=== PATIENT | female | born 1940 | race Caucasian/White ===

== ENCOUNTER → 2023-11-22 07:37 | Outpatient (REF) | payer MEDICARE, BC, SELFPAY ==
[2023-11-22 10:08] LABS: % Basophils 0.4 % (0-2); % Eosinophils 1.5 % (0-6); % Immature Granulocytes 0.2 % (0-0.5); % Lymphocytes 23.8 % (20.5-51.1); % Monocytes 5.8 % (1.7-9.3); % Neutrophils 68.3 % (42.2-75.2); Absolute Eosinophils 0.1 10^3/uL (0-0.7); Absolute Lymphocytes 1.9 10^3/uL (1.2-3.4); Absolute Monocytes 0.5 10^3/uL (0.1-0.6); Absolute Neutrophils 5.6 10^3/uL (1.4-6.5); Hematocrit 42.5 % (37.0-47.0); Hemoglobin 14.2 g/dL (12.0-16.0); Mean Corp Hgb Conc. 33.4 g/dL (33.0-37.0); Mean Corpuscular Volume 83.8 fL (81.0-99.0); Mean Platelet Volume 10.5 fL (7.4-10.4); Nucleated Red Blood Cells % 0 %; Platelet Count 341 10^3/uL (130-400); Red Blood Cell Count 5.07 10^6/uL (4.20-5.40); Red Cell Dist. Width 13.4 % (11.5-14.5); White Blood Cell Count 8.1 10^3/uL (4.8-10.8)
[2023-11-22 10:24] LABS: Blood Urea Nitrogen 17 mg/dl (7-17); Calcium 9.9 mg/dl (8.4-10.2); Carbon Dioxide 26 mmol/L (22-30); Chloride 102 mmol/L (98-107); Glucose 105 mg/dl (70-99); Sodium 138 mmol/L (135-145); eGFR > 60.00
== END ==
LOC: HWLAB 07:37
PROVIDERS: ATTENDING PHYSICIAN Urology; FAMILY PHYSICIAN Internal Medicine
DX: N20.0 Calculus of kidney (principal); N39.0 Urinary tract infection, site not specified
CPT/HCPCS: 36415; 80048; 85025; 87077; 87086; 87186; 93005

== ENCOUNTER → 2024-03-02 08:27 | Outpatient (REF) | payer MEDICARE, BC, SELFPAY | LOC: HWRAD 08:27 | PROVIDERS: ATTENDING PHYSICIAN Urology; FAMILY PHYSICIAN Physician Assistant Medical | DX: N20.0 Calculus of kidney (principal) | CPT/HCPCS: 76775 ==

== ENCOUNTER → 2024-04-18 12:50 | Outpatient (REF) | payer MEDICARE, BC, SELFPAY | LOC: HWRCS 12:50 | PROVIDERS: ATTENDING PHYSICIAN Internal Medicine Cardiovascular Disease; FAMILY PHYSICIAN Physician Assistant Medical | DX: R01.1 Cardiac murmur, unspecified (principal) | CPT/HCPCS: 93306 ==

== ENCOUNTER → 2024-07-04 13:40 | Outpatient (REF) | payer MEDICARE, BC, SELFPAY | LOC: HWWDC 13:40 | PROVIDERS: ATTENDING PHYSICIAN Physician Assistant Medical | DX: Z12.31 Encounter for screening mammogram for malignant neoplasm of breast (principal) | CPT/HCPCS: 77063; 77067 ==

== ENCOUNTER → 2024-07-09 07:09 | Outpatient (REF) | payer MEDICARE, BC, SELFPAY ==
[2024-07-09 10:07] LABS: HDL Cholesterol 91 mg/dl; LDL Cholesterol, Calculated 71 mg/dl; Total Cholesterol 184 mg/dl (50-199); Triglyceride 113 mg/dl (10-149); Very Low Density Lipoprotein 22 mg/dl (0-30)
== END ==
LOC: HWLAB 07:09
PROVIDERS: ATTENDING PHYSICIAN Internal Medicine Cardiovascular Disease; FAMILY PHYSICIAN Physician Assistant Medical
DX: E78.5 Hyperlipidemia, unspecified (principal)
CPT/HCPCS: 36415; 80061

== ENCOUNTER → 2024-07-24 14:20 | Outpatient (REF) | payer MEDICARE, BC, SELFPAY | LOC: RAD 14:20 | PROVIDERS: ATTENDING PHYSICIAN Internal Medicine Cardiovascular Disease; FAMILY PHYSICIAN Physician Assistant Medical | DX: I10 Essential (primary) hypertension (principal); R09.89 Other specified symptoms and signs involving the circulatory and respiratory systems | CPT/HCPCS: 93880 ==

== ENCOUNTER → 2024-08-24 07:52 | Outpatient (REF) | payer MEDICARE, BC, SELFPAY ==
[2024-08-24 09:41] LABS: ALT (SGPT) 15 U/L (0-35); AST (SGOT) 26 U/L (14-36); Albumin 4.6 g/dl (3.5-5.0); Alkaline Phosphatase 63 U/L (38-126); Blood Urea Nitrogen 23 mg/dl (7-17); Calcium 9.8 mg/dl (8.4-10.2); Carbon Dioxide 24 mmol/L (22-30); Chloride 101 mmol/L (98-107); Glucose 101 mg/dl (70-99); Potassium 4.1 mmol/L (3.5-5.1); Sodium 135 mmol/L (135-145); Total Bilirubin 0.6 mg/dl (0.2-1.3); Total Protein 7.1 g/dl (6.3-8.2); eGFR > 60.00
[2024-08-24 10:02] LABS: Glycohemoglobin (HgbA1c) 5.7 % (4.0-5.6)
[2024-08-24 10:10] LABS: Vitamin D, 25-OH*** 37.5 ng/mL (30-80)
== END ==
LOC: HWLAB 07:52
PROVIDERS: ATTENDING PHYSICIAN Physician Assistant Medical
DX: E55.9 Vitamin D deficiency, unspecified (principal); R73.01 Impaired fasting glucose
CPT/HCPCS: 36415; 80053; 82306; 83036

== ENCOUNTER → 2025-01-29 10:25 | Outpatient (REF) | payer MEDICARE, BC, SELFPAY | LOC: RAD 10:25 | PROVIDERS: ATTENDING PHYSICIAN Student in an Organized Health Care Education/Training Program; FAMILY PHYSICIAN Physician Assistant | DX: M79.604 Pain in right leg (principal) | CPT/HCPCS: 73564; 93971 ==

== ENCOUNTER → 2025-03-28 11:08 | Outpatient (REF) | payer MEDICARE, BC, SELFPAY | LOC: HWRAD 11:08 | PROVIDERS: ATTENDING PHYSICIAN Physician Assistant; FAMILY PHYSICIAN Student in an Organized Health Care Education/Training Program; REFERRING PHYSICIAN Urology | DX: N20.0 Calculus of kidney (principal); N39.0 Urinary tract infection, site not specified | CPT/HCPCS: 76775 ==

== ENCOUNTER → 2025-04-16 12:53 | Outpatient (REF) | payer MEDICARE, BC, SELFPAY ==
[2025-04-16 16:01] LABS: Urine Character Clear (Clear)
[2025-04-16 16:41] LABS: Urine White Cell 70-80 /HPF (0-5)
== END ==
LOC: HWLAB 12:53
PROVIDERS: ATTENDING PHYSICIAN Physician Assistant; FAMILY PHYSICIAN Student in an Organized Health Care Education/Training Program
DX: N20.0 Calculus of kidney (principal); N39.0 Urinary tract infection, site not specified
CPT/HCPCS: 36415; 81003; 81015; 87077; 87086; 87186

== ENCOUNTER → 2025-06-25 07:31 | Outpatient (REF) | payer MEDICARE, BC, SELFPAY | LOC: HWRAD 07:31 | PROVIDERS: ATTENDING PHYSICIAN Student in an Organized Health Care Education/Training Program | DX: Z78.0 Asymptomatic menopausal state (principal); Z13.820 Encounter for screening for osteoporosis | CPT/HCPCS: 77080 ==

== ENCOUNTER → 2025-07-03 13:07 | Outpatient (REF) | payer MEDICARE, BC, SELFPAY | LOC: CLAB 13:07 | PROVIDERS: ATTENDING PHYSICIAN Student in an Organized Health Care Education/Training Program | DX: N39.0 Urinary tract infection, site not specified (principal) | CPT/HCPCS: 87077; 87086 ==

== ENCOUNTER → 2025-08-15 11:07 | Outpatient (REF) | payer MEDICARE, BC, SELFPAY | LOC: HWWDC 11:07 | PROVIDERS: ATTENDING PHYSICIAN Student in an Organized Health Care Education/Training Program | DX: Z12.31 Encounter for screening mammogram for malignant neoplasm of breast (principal) | CPT/HCPCS: 77063; 77067 ==

== ENCOUNTER → 2025-08-20 08:22 | Outpatient (REF) | payer MEDICARE, BC, SELFPAY ==
[2025-08-20 10:34] LABS: Folate 10.9 ng/ml (2.76-20); Vitamin B12 373 pg/ml (239-931)
== END ==
LOC: REG 08:22
PROVIDERS: ATTENDING PHYSICIAN Student in an Organized Health Care Education/Training Program
DX: R41.3 Other amnesia (principal); M41.25 Other idiopathic scoliosis, thoracolumbar region; I10 Essential (primary) hypertension
CPT/HCPCS: 36415; 72082; 82607; 82746; 84443